=== PATIENT | female | born 1945 ===

== ENCOUNTER 2019-02-11 10:49 | Outpatient (CLI) | payer OTHER | END 2019-02-11 10:50 | disposition home or self-care (01) | LOC: NUCLEAR 10:49 → MRI 12:15 | DX: I83.893 Varicose veins of bilateral lower extremities with other complications (principal) ==

== ENCOUNTER 2019-02-11 11:47 | Outpatient (CLI) | payer OTHER | END 2019-02-11 17:00 | disposition home or self-care (01) | LOC: MRI 11:47 | DX: M54.5 Low back pain (principal) | CPT/HCPCS: 72148 ==